=== PATIENT | female | born 1975 | race Caucasian/White ===

== ENCOUNTER → 2023-11-12 06:30 | Day surgery (SDC) | payer OTHER, SELFPAY | LOC: GI 06:30 | PROVIDERS: ATTENDING PHYSICIAN Internal Medicine Gastroenterology | DX: Z12.11 Encounter for screening for malignant neoplasm of colon (principal); K57.30 Diverticulosis of large intestine without perforation or abscess without bleeding; K64.0 First degree hemorrhoids; D12.3 Benign neoplasm of transverse colon; K63.5 Polyp of colon; D12.2 Benign neoplasm of ascending colon | CPT/HCPCS: 45385; 88305 ==